=== PATIENT | female | born 1940 | race African-American/Black ===

== ENCOUNTER 2018-09-20 22:36 | Observation (INO) | payer BC, OTHER ==
--- NOTE | 2018-09-20 22:54 | PDOC ---
History of Present Illness - General Chief Complaint: Tongue Swelling Stated Complaint: COLD Time Seen by Provider: 09/20/18 22:53 - History of Present Illness Initial Comments: 09/20/18 23:26 The patient is a 77 year old female with a history of HTN, HLD, CHF, Hypothyroidism, PVD who presents for evaluation of tongue swelling. The patient noted right sided tongue swelling beginning at approximately 5pm prompting her presentation to the ED for further evaluation. The patient also notes a non-productive cough over the past 1 week as well. She denies any difficulty breathing and denies any FERMIN inhibitor use as well. She otherwise denies fevers, chills, SOB, difficulty swallowing, chest pain, nausea, vomiting , abdominal pain, or changes with urination or bowel movements. Past History - Past Medical History Allergies/Adverse Reactions: Allergies Allergy/AdvReac Type Severity Reaction Status Date / Time No Known Allergies Allergy Verified 01/01/16 00:32 Home Medications: Ambulatory Orders Levothyroxine [Synthroid -] 88 mcg PO DAILY 11/25/15 Atorvastatin Ca [Lipitor] 40 mg PO HS #30 tablet 11/26/15 Acetaminophen W/ Codeine #3 [Tylenol # 3 -] 1 tab PO Q6H PRN #60 tablet MDD 4 Albuterol 2.5/Ipratropium 0.5 [Duoneb -] 1 amp NEB Q6H PRN #60 amp 12/21/15 Bethanechol Chloride [Bethanechol Chloride -] 50 mg PO TID #90 tablet 12/21/15 Sennosides [Senna -] 2 tab PO HS #60 tablet 12/21/15 Tamsulosin HCl [Flomax -] 0.4 mg PO DAILY@0830 #30 cap.er.24h 12/21/15 Docusate Sodium [Colace -] 100 mg PO DAILY 01/01/16 Ferrous Sulfate [Feosol] 325 mg PO DAILY 01/01/16 Lactobacillus Acidophilus [Bacid -] 1 each PO DAILY 01/01/16 Collagenase Clostridium Hist. [Santyl] 1 applic TP DAILY #90 applic 02/09/16 Anemia: No Asthma: Yes Cancer: No Cardiac Disorders: No CVA: No COPD: No CHF: Yes Dementia: No Diabetes: (borderline no meds) HTN: Yes Hypercholesterolemia: Yes Seizures: No Thyroid Disease: Yes (HYPO.) - Immunization History Immunization Up to Date: No - Suicide/Smoking/Psychosocial Hx Smoking History: Never smoked Have you smoked in the past 12 months: No Hx Alcohol Use: No Drug/Substance Use Hx: No Substance Use Type: None Hx Substance Use Treatment: No Review of Systems - Review of Systems Comments:: 09/20/18 23:29 Constitutional: No fevers, chills, fatigue, malaise HEENT: Tongue swelling. No Rhinorrhea, nasal congestion, visual changes Cardiovascular: No chest pain, syncope, palpitations, lightheadedness Respiratory: Cough, No SOB, Hemoptysis, Gastrointestinal: No Abdominal pain, Nausea, Vomiting, Constipation, Diarrhea, Melena Genitourinary: No Dysuria, Frequency, Urgency, Hesitancy, Hematuria, Flank pain Musculoskeletal: No Myalgia, arthralgia Skin: No rashes, itching, bruising, pallor Neurologic: No Headache, Dizziness, Numbness, Weakness, or Tingling Psychiatric: No Hallucinations. No SI or HI *Physical Exam - Vital Signs Last Vital Signs Temp Pulse Resp BP Pulse Ox 98.2 F 74 18 142/71 100 09/20/18 22:38 09/20/18 22:38 09/20/18 22:38 09/20/18 22:38 09/20/18 22:38 - Physical Exam Comments: 09/20/18 23:30 General Appearance: Nourished. No Apparent Distress HEENT: Significant right sided laryngeal edema. Unable to visualize uvula on exam. Neck: No Cervical Lymphadenopathy Respiratory/Chest: Lungs Clear, Normal Breath Sounds. No Crackles, Rales, Rhonchi, Wheezing Cardiovascular: Regular Rhythm, Regular Rate. No Murmur, Gallops, Rubs Gastrointestinal/Abdominal: Normal Bowel Sounds, Soft. No Guarding, Rebound, Tenderness Musculoskeletal: No CVA Tenderness Extremity: Normal Capillary Refill Integumentary: Normal Color, Dry, Warm Neurologic: Fully Oriented, Alert, Normal Mood/Affect, Normal Response, ED Treatment Course - LABORATORY CBC & Chemistry Diagram: 09/20/18 23:15 09/20/18 23:15 Medical Decision Making - Medical Decision Making 09/20/18 23:33 The patient is a 77 year old female with a history of HTN, HLD, CHF, Hypothyroidism, PVD who presents for evaluation of tongue swelling. Given the patient's history and physical exam, we will obtain a cbc, cmp, chest plain film , ekg to evaluate further. The patient does not appears to be in respiratory distress currently. We will treat with iv solu-medrol and benadryl and continue to monitor and reassess while here in the ED. She will likely require admission for angioedema. 09/21/18 02:15 cbc, cmp, is unremarkable. chest plain film is unremarkable. Given the patient 's significant laryngeal edema, she will require obs admission for further monitoring. We discussed the case with the admitting team who accepted the patient for admission. *DC/Admit/Observation/Transfer Diagnosis at time of Disposition: Angio-edema Qualifiers: Encounter type: initial encounter Qualified Code(s): T78.3XXA - Angioneurotic edema, initial encounter - Discharge Dispostion Condition at time of disposition: Stable Decision to Admit order: Yes - Referrals - Patient Instructions - Post Discharge Activity
[2018-09-20] MEDS ORDERED: methylPREDNISolone NA SUCC 125 MG/2 ML VIAL IVPUSH ONE (23:05)
[2018-09-20 23:27] LABS: BASO % 0.5 % (0-2.0); EOS % 0.6 % (0-4.5); HEMATOCRIT 38.7 % (32.4-45.2); HEMOGLOBIN 12.9 GM/dL (10.7-15.3); LYMPH % 29.8 % (8-40); MCH 31.5 pg (25.7-33.7); MCHC 33.5 g/dl (32.0-36.0); MEAN CELL VOLUME 94.1 fl (80-96); MEAN PLT VOLUME 7.5 fl (7.5-11.1); MONO % 7.8 % (3.8-10.2); NEUT % 61.3 % (42.8-82.8); PLATELET COUNT 227 K/MM3 (134-434); RBC 4.11 M/mm3 (3.60-5.2); RDW 14.6 % (11.6-15.6); WHITE BLOOD COUNT 5.3 K/mm3 (4.0-10.0)
[2018-09-20 23:56] LABS: ALBUMIN 3.7 g/dl (3.4-5.0); ALK PHOS 63 U/L (45-117); ANION GAP 7 MMOL/L (8-16); BILIRUBIN,TOTAL 0.3 mg/dL (0.2-1); BLOOD UREA NITROGEN 13 mg/dL (7-18); CALCIUM 9.2 mg/dL (8.5-10.1); CHLORIDE 103 mmol/L (98-107); CO2 27 mmol/L (21-32); CREATININE 0.7 mg/dL (0.55-1.3); GLUCOSE,RANDOM 108 mg/dL (74-106); POTASSIUM 3.9 mmol/L (3.5-5.1); SGOT/AST 36 U/L (15-37); SGPT/ALT 29 U/L (13-61); SODIUM 137 mmol/L (136-145); TOT PROT 7.8 g/dl (6.4-8.2)
[2018-09-21] MEDS ORDERED: methylPREDNISolone NA SUCC 125 MG/2 ML VIAL ONE (00:32)
--- NOTE | 2018-09-21 01:05 | PN ---
Teaching Attending Note Name of Resident: Kevin Zelaya ATTENDING PHYSICIAN STATEMENT I saw and evaluated the patient. I reviewed the resident's note and discussed the case with the resident. I agree with the resident's findings and plan as documented. SUBJECTIVE: Seen and examined; please refer to resident note for further historical information. Briefly, this is a 77 y/o female presenting to the ER with tongue swelling at 5PM. Denies any respiratory distress, no issues with secretions. No new medications, no FERMIN/ARB exposure (though she is unclear about her medications off memory). No new foods, exposures, detergents, etc. She is able to swallow. Pending phone call to pharmacy to verify medications. Has not had angioedema prior. 10 sys ROS done and negative aside from HPI PMH (hypertension, HL, PAD s/p angiplasty 09/2015 and BKA 12/2015, hypothyroidism , borderline diabetes, anemia), PSH, FH, SH reviewed Medication list reviewed Home Medications Medication Instructions Recorded Levothyroxine [Synthroid -] 88 mcg PO DAILY 11/25/15 Atorvastatin Ca [Lipitor] 40 mg PO HS #30 tablet 11/26/15 Acetaminophen W/ Codeine #3 1 tab PO Q6H PRN #60 tablet MDD 4 12/21/15 [Tylenol # 3 -] Albuterol 2.5/Ipratropium 0.5 1 amp NEB Q6H PRN #60 amp 12/21/15 [Duoneb -] Bethanechol Chloride [Bethanechol 50 mg PO TID #90 tablet 12/21/15 Chloride -] Sennosides [Senna -] 2 tab PO HS #60 tablet 12/21/15 Tamsulosin HCl [Flomax -] 0.4 mg PO DAILY@0830 #30 cap.er.24h 12/21/15 Docusate Sodium [Colace -] 100 mg PO DAILY 01/01/16 Ferrous Sulfate [Feosol] 325 mg PO DAILY 01/01/16 Lactobacillus Acidophilus [Bacid -] 1 each PO DAILY 01/01/16 Collagenase Clostridium Hist. 1 applic TP DAILY #90 applic 02/09/16 [Santyl] OBJECTIVE: VS, labs, imaging reviewed NAD, AAO, resting comfortably in bed NC AT EOMI PERRLA Tongue swelling observed without lip swelling, can see uvula. NT ND +BS Lungs CTAB, w/ sym exp Normal mood, appropriate behavior EKG reviewed ECHO 2016 reviewed ASSESSMENT AND PLAN: Patient presents for suspected angioedema 1) Tongue Swelling, suspected angioedema -Placing on Prednisone 40mg PO QD and Benadryl 25mg PO BID -Monitor for airway compromise -Checking CRP, C4 -Consider OP allergy referral if needed 2) Hx Hypothyroid -Continue LT4; TSH as OP 3) CHF -Euvolemic today; verify home meds (especially presence of FERMIN) and continue appropriate tx. 4) Asthma -Documented in chart; no acute exacerbation 5) Prediabetes -Followup fsg 6) S/P BKA (below knee amputation)
--- NOTE | 2018-09-21 01:34 | HP ---
CHIEF COMPLAINT: tongue swelling PCP: HISTORY OF PRESENT ILLNESS: Patient is a 77 y/o F w/ PMHx HTN, HLD, CHF, hypothyroidism 2/2 thyroidectomy for unspecified thyroid growth, PVD c/b RLE BKA , p/w tongue swelling since 5pm. No known inciting factors, no change in diet, no FERMIN-inhibitor use, no recent medication changes, no recent travel, no changes in habit otherwise. No difficulty breathing, swallowing is "tight" but manageable, no pooling secretions. ROS otherwise negative. Labs unremarkable throughout. Received Solumedrol and Benadryl in ED. Recent Travel: None PAST MEDICAL HISTORY: As per HPI PAST SURGICAL HISTORY: As per HPI Social History: Smoking: no Alcohol: no Drugs: no Family History: Allergies No Known Allergies Allergy (Verified 01/01/16 00:32) HOME MEDICATIONS: Home Medications Medication Instructions Recorded Levothyroxine [Synthroid -] 88 mcg PO DAILY 11/25/15 Atorvastatin Ca [Lipitor] 40 mg PO HS #30 tablet 11/26/15 Acetaminophen W/ Codeine #3 1 tab PO Q6H PRN #60 tablet MDD 4 12/21/15 [Tylenol # 3 -] Albuterol 2.5/Ipratropium 0.5 1 amp NEB Q6H PRN #60 amp 12/21/15 [Duoneb -] Bethanechol Chloride [Bethanechol 50 mg PO TID #90 tablet 12/21/15 Chloride -] Sennosides [Senna -] 2 tab PO HS #60 tablet 12/21/15 Tamsulosin HCl [Flomax -] 0.4 mg PO DAILY@0830 #30 cap.er.24h 12/21/15 Docusate Sodium [Colace -] 100 mg PO DAILY 01/01/16 Ferrous Sulfate [Feosol] 325 mg PO DAILY 01/01/16 Lactobacillus Acidophilus [Bacid -] 1 each PO DAILY 01/01/16 Collagenase Clostridium Hist. 1 applic TP DAILY #90 applic 02/09/16 [Santyl] REVIEW OF SYSTEMS As per HPI PHYSICAL EXAMINATION Vital Signs - 24 hr 09/20/18 22:38 Temperature 98.2 F Pulse Rate 74 Respiratory 18 Rate Blood Pressure 142/71 O2 Sat by Pulse 100 Oximetry (%) GENERAL: A&Ox3, NAD HEAD: NC/AT EYES: PERRLA, EOMI EARS, NOSE, THROAT: +significant R-sided angioedema of the tongue, uvula cannot be visualized NECK: Normal range of motion, supple without lymphadenopathy, JVD, or masses. LUNGS: CTA b/l HEART: RRR no m/r/g ABDOMEN: +bs, soft, NT, ND EXTREMITIES: 2+ pulses, warm, well-perfused. RLE s/p BKA. NEUROLOGICAL: play writer, motor, sensory systems w/o focal deficit PSYCHIATRIC: Cooperative. Good eye contact. Appropriate mood and affect. SKIN: Warm, dry, normal turgor, no rashes or lesions noted, normal capillary refill. Laboratory Results - last 24 hr 09/20/18 09/20/18 23:15 23:15 WBC 5.3 RBC 4.11 Hgb 12.9 Hct 38.7 MCV 94.1 MCH 31.5 MCHC 33.5 RDW 14.6 D Plt Count 227 MPV 7.5 D Absolute Neuts (auto) 3.2 Neutrophils % 61.3 D Lymphocytes % 29.8 D Monocytes % 7.8 Eosinophils % 0.6 D Basophils % 0.5 Nucleated RBC % 0 Sodium 137 Potassium 3.9 Chloride 103 Carbon Dioxide 27 Anion Gap 7 L BUN 13 Creatinine 0.7 Creat Clearance w eGFR 81.14 Random Glucose 108 H Calcium 9.2 Total Bilirubin 0.3 AST 36 ALT 29 Alkaline Phosphatase 63 Total Protein 7.8 Albumin 3.7 ASSESSMENT/PLAN: #A: -77 y/o F w/ PMHx HTN, HLD, CHF, hypothyroidism 2/2 thyroidectomy for unspecified thyroid growth, PVD c/b RLE BKA, 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 - New Patient This patient is new to me today: Yes Date on this admission: 09/21/18 - Critical Care Critical Care patient: No
--- NOTE | 2018-09-21 01:58 | PDOC ---
Documentation entered by Jony Jon SCRIBE, acting as scribe for Tamiko Villalba MD. Tamiko Villalba MD: This documentation has been prepared by the Dontrell lilly Nirvannie, SCRIBE, under my direction and personally reviewed by me in its entirety. I confirm that the documentation accurately reflects all work, treatment, procedures, and medical decision making performed by me. Attending Attestation - Resident Resident Name: KatarzynaKevin - ED Attending Attestation I have performed the following: I have examined & evaluated the patient, The case was reviewed & discussed with the resident, I agree w/resident's findings & plan - HPI HPI: 09/20/18 23:12 77-year-old female has been experiencing swelling to the right side of her tongue since 5 PM this afternoon. She does not have any hives or respiratory distress at this time. She does have a "hot potato voice" - Physicial Exam PE: 09/20/18 23:29 GENERAL: Well-appearing, well-nourished. No apparent distress. HEENT: +Right sided tongue edema. Uvula is not visualized. ABDOMEN: Soft, non-distended, non-tender. EXTREMITIES: R BKA. SKIN: Warm, dry. No rash NEUROLOGICAL: No focal neurological deficits. - Medical Decision Making 09/21/18 01:57 77 yo female p/w swollen tongue,admitted for airway watch,received steroids, Benadryl
[2018-09-21 06:11] LABS: BASO % 0.3 % (0-2.0); HEMATOCRIT 38.3 % (32.4-45.2); LYMPH % 25.1 % (8-40); MCH 31.6 pg (25.7-33.7); MEAN PLT VOLUME 7.8 fl (7.5-11.1); MONO % 1.6 % (3.8-10.2); PLATELET COUNT 235 K/MM3 (134-434); RBC 4.12 M/mm3 (3.60-5.2); RDW 14.5 % (11.6-15.6); WHITE BLOOD COUNT 5.2 K/mm3 (4.0-10.0)
[2018-09-21 06:13] VITALS: BMI 28.8
[2018-09-21 06:37] LABS: ANION GAP 8 MMOL/L (8-16); BLOOD UREA NITROGEN 13 mg/dL (7-18); CALCIUM 9.4 mg/dL (8.5-10.1); CHLORIDE 104 mmol/L (98-107); CO2 28 mmol/L (21-32); CREATININE 0.8 mg/dL (0.55-1.3); GLUCOSE,RANDOM 125 mg/dL (74-106); MAGNESIUM 2.3 mg/dL (1.8-2.4); PHOSPHOROUS 3.2 mg/dL (2.5-4.9); POTASSIUM 4.2 mmol/L (3.5-5.1); SODIUM 140 mmol/L (136-145)
--- NOTE | 2018-09-21 09:49 | EKG ---
Test Reason : Blood Pressure : / mmHG Vent. Rate : 068 BPM Atrial Rate : 068 BPM P-R Int : 152 ms QRS Dur : 070 ms QT Int : 436 ms P-R-T Axes : 040 -26 011 degrees QTc Int : 463 ms POOR DATA QUALITY, INTERPRETATION MAY BE ADVERSELY AFFECTED NORMAL SINUS RHYTHM NORMAL ECG WHEN COMPARED WITH ECG OF 02-JAN-2016 01:57, PREMATURE ATRIAL COMPLEXES ARE NO LONGER PRESENT QRS AXIS SHIFTED LEFT Confirmed by ETTA FONTANEZ MD ([id number]) on 09/21/2018 9:49:23 AM Referred By: Confirmed By:ETTA FONTANEZ MD
[2018-09-21] MEDS ORDERED: ENOXAPARIN NA (PORCINE) 40 MG/0.4 ML DISP.SYRIN SQ SCH (10:00)
[2018-09-21] MEDS ORDERED: predniSONE 20 MG TABLET (UD) PO SCH (10:00)
[2018-09-21] MEDS ORDERED: diphenhydrAMINE HCL 12.5 MG/5 ML UNIT-DOSE CUPS PO SCH (10:00)
[2018-09-21] MEDS ORDERED: PT OWN MED DRAWER 7, Y5N ONE (10:14)
--- NOTE | 2018-09-21 11:55 | PN ---
Teaching Attending Note Name of Resident: Patrick Edmond ATTENDING PHYSICIAN STATEMENT I saw and evaluated the patient. I reviewed the resident's note and discussed the case with the resident. I agree with the resident's findings and plan as documented. SUBJECTIVE: Patient has no complaints. OBJECTIVE: Vital Signs Period Temp Pulse Resp BP Sys/Rahman Pulse Ox Last 24 Hr 98.0 F-98.5 F 60-79 17-18 136-166/70-84 98-100 HEENT: Pharynx clear, tongue normal HEART: S1S2, RRR LUNGS: Clear ABDOMEN: Soft, non-tender, non-distended, normal BS EXTREMITIES: No edema, s/p R BKA Laboratory Results - last 24 hr 09/20/18 09/20/18 09/21/18 23:15 23:15 01:48 WBC 5.3 RBC 4.11 Hgb 12.9 Hct 38.7 MCV 94.1 MCH 31.5 MCHC 33.5 RDW 14.6 D Plt Count 227 MPV 7.5 D Absolute Neuts (auto) 3.2 Neutrophils % 61.3 D Lymphocytes % 29.8 D Monocytes % 7.8 Eosinophils % 0.6 D Basophils % 0.5 Nucleated RBC % 0 ESR Sodium 137 Potassium 3.9 Chloride 103 Carbon Dioxide 27 Anion Gap 7 L BUN 13 Creatinine 0.7 Creat Clearance w eGFR 81.14 Random Glucose 108 H Calcium 9.2 Phosphorus Magnesium Total Bilirubin 0.3 AST 36 ALT 29 Alkaline Phosphatase 63 C-Reactive Protein 0.9 H Total Protein 7.8 Albumin 3.7 09/21/18 09/21/18 09/21/18 01:48 05:20 05:20 WBC 5.2 RBC 4.12 Hgb 13.0 Hct 38.3 MCV 93.0 MCH 31.6 MCHC 34.0 RDW 14.5 Plt Count 235 MPV 7.8 Absolute Neuts (auto) 3.8 Neutrophils % 73.0 Lymphocytes % 25.1 Monocytes % 1.6 L Eosinophils % 0.0 D Basophils % 0.3 Nucleated RBC % 0 ESR 21 Sodium 140 Potassium 4.2 Chloride 104 Carbon Dioxide 28 Anion Gap 8 BUN 13 Creatinine 0.8 Creat Clearance w eGFR 69.55 Random Glucose 125 H Calcium 9.4 Phosphorus 3.2 Magnesium 2.3 Total Bilirubin AST ALT Alkaline Phosphatase C-Reactive Protein Total Protein Albumin Current Medications Generic Name Dose Route Start Last Admin Trade Name Freq PRN Reason Stop Dose Admin Diphenhydramine HCl 25 mg 09/21/18 10:00 Benadryl Oral Solution - PO BID LUPE Enoxaparin Sodium 40 mg 09/21/18 10:00 09/21/18 10:20 Lovenox - SQ 40 mg DAILY LUPE Administration Prednisone 40 mg 09/21/18 10:00 09/21/18 10:20 Deltasone - PO 40 mg DAILY LUPE Administration ASSESSMENT AND PLAN: This is a 77 year old woman with a history of HTN, hyperlipidemia, acute systolic heart failure, hypothyroidism, PAD, right BKA who presented to the ED with swelling of her tongue. 1. Angioedema of the tongue - Resolved - Start diet - if no difficulty swallowing, would discharge with EpiPen, short course of Prednisone, Benadryl as needed 2. HTN - Continue verapamil 3. Hyperlipidemia - Continue Lipitor 4. History of acute systolic heart failure 5. Hypothyroidism secondary to thyroidectomy - Continue Synthroid 6. PAD, history of right BKA
--- NOTE | 2018-09-21 12:55 | DS ---
Physical Exam: SUBJECTIVE: Patient seen and examined. No acute events overnight. Pt. states that her tongue swelling has completely subsided. Pt. denies any changes in environment, food, or medications. Pt. denies any history of this happening before. OBJECTIVE: Vital Signs Period Temp Pulse Resp BP Sys/Rahman Pulse Ox Last 24 Hr 98.0 F-98.5 F 60-79 17-18 136-166/70-84 98-100 PHYSICAL EXAM GENERAL: The patient is awake, alert, and fully oriented, in no acute distress. HEAD: Normal with no signs of trauma. EYES: PERRL, extraocular movements intact, sclera anicteric, conjunctiva clear. ENT: Ears normal, nares patent, oropharynx clear without exudates, moist mucous membranes. LUNGS: Breath sounds equal, clear to auscultation bilaterally, no wheezes, no crackles, no accessory muscle use. HEART: Regular rate and rhythm, S1, S2 without murmur ABDOMEN: Soft, nontender, nondistended, normoactive bowel sounds, no guarding, no rebound EXTREMITIES: 2+ radial pulses, warm, well-perfused, no edema. NEUROLOGICAL: Normal speech, gait not observed. PSYCH: Normal mood, normal affect. SKIN: Warm, dry, normal turgor, no rashes or lesions noted. LABS Laboratory Results - last 24 hr 09/20/18 09/20/18 09/21/18 23:15 23:15 01:48 WBC 5.3 RBC 4.11 Hgb 12.9 Hct 38.7 MCV 94.1 MCH 31.5 MCHC 33.5 RDW 14.6 D Plt Count 227 MPV 7.5 D Absolute Neuts (auto) 3.2 Neutrophils % 61.3 D Lymphocytes % 29.8 D Monocytes % 7.8 Eosinophils % 0.6 D Basophils % 0.5 Nucleated RBC % 0 ESR Sodium 137 Potassium 3.9 Chloride 103 Carbon Dioxide 27 Anion Gap 7 L BUN 13 Creatinine 0.7 Creat Clearance w eGFR 81.14 Random Glucose 108 H Calcium 9.2 Phosphorus Magnesium Total Bilirubin 0.3 AST 36 ALT 29 Alkaline Phosphatase 63 C-Reactive Protein 0.9 H Total Protein 7.8 Albumin 3.7 09/21/18 09/21/18 09/21/18 01:48 05:20 05:20 WBC 5.2 RBC 4.12 Hgb 13.0 Hct 38.3 MCV 93.0 MCH 31.6 MCHC 34.0 RDW 14.5 Plt Count 235 MPV 7.8 Absolute Neuts (auto) 3.8 Neutrophils % 73.0 Lymphocytes % 25.1 Monocytes % 1.6 L Eosinophils % 0.0 D Basophils % 0.3 Nucleated RBC % 0 ESR 21 Sodium 140 Potassium 4.2 Chloride 104 Carbon Dioxide 28 Anion Gap 8 BUN 13 Creatinine 0.8 Creat Clearance w eGFR 69.55 Random Glucose 125 H Calcium 9.4 Phosphorus 3.2 Magnesium 2.3 Total Bilirubin AST ALT Alkaline Phosphatase C-Reactive Protein Total Protein Albumin HOSPITAL COURSE: Date of Admission:09/21/18 Date of Discharge: 09/21/18 Pt. admitted for observation for right-sided tongue swelling consistent with angioedema. Pt. given Benadryl and antihistamines with good effect. Pt. achieved full remission of the swelling. Pt. observed overnight without any acute changes or complications. Pt. discharged with steroids, benadryl and an epipen as detailed below. Hospital course discussed and agreed upon with Pt. and medical staff. Minutes to complete discharge: 35 Discharge Summary Reason For Visit: ANGIOEDEMA Current Active Problems Angio-edema (Acute) Condition: Stable - Instructions Diet, Activity, Other Instructions: You came in for tongue swelling. We treated you with steroids and benadryl and the swelling has improved Medications: Please take prednisone 40mg (2 of the 20mg tablets) once a day for 4 days starting tomorrow and then stop. Please take benadryl 25 mg twice a day only as needed for swelling or itching Please pick and shovel worker an epi-pen from the pharmacy (we prescribed it for you). Inject it into the muscle of your thigh (as described by the package instructions) if you start to experience tongue swelling or difficulty breathing and go to the emergency room immediately. Please follow up with your Primary Care Provider within 1 week Please return to the ED if you are having tongue swelling, difficulty breathing , lightheadedness, dizziness or any concerning problems. Disposition: HOME - Home Medications Comprehensive Discharge Medication List: Ambulatory Orders Levothyroxine [Synthroid -] 88 mcg PO DAILY 11/25/15 Atorvastatin Ca [Lipitor] 40 mg PO HS #30 tablet 11/26/15 Diphenhydramine HCl [Benadryl -] 25 mg PO BID #14 capsule 09/21/18 Epinephrine [Epipen 2-Eleno] 0.3 mg IJ ASDIR #1 kit 09/21/18 Verapamil HCl [Verapamil ER] 240 mg PO DAILY 09/21/18 predniSONE [Deltasone -] 40 mg PO DAILY #8 tablet 09/21/18 This patient is new to me today: Yes Date on this admission: 09/21/18 Emergency Visit: Yes ED Registration Date: 09/21/18 Care time: The patient presented to the Emergency Department on the above date and was hospitalized for further evaluation of their emergent condition. Critical Care patient: No - Discharge Referral Referred to [facility] Med P.C.: No
[2018-09-21 15:02] VITALS: BP 130/80; PULSE 78; TEMP 98.4
== END 2018-09-21 15:30 | disposition home or self-care (01) ==
LOC: SUPCPDRO 22:36 → JER 22:36 → JERBED 09-21 00:47 → J8W 09-21 06:28
PROVIDERS: ADMIT Internal Medicine; ATTEND Internal Medicine
PROC: 3E033GC Introduction of Other Therapeutic Substance into Peripheral Vein, Percutaneous Approach (ICD-10-PCS; principal; 2018-09-21)
PROC: 3E013GC Introduction of Other Therapeutic Substance into Subcutaneous Tissue, Percutaneous Approach (ICD-10-PCS; 2018-09-21)
DX: T78.3XXA Angioneurotic edema, initial encounter (principal); I11.0 Hypertensive heart disease with heart failure; E78.5 Hyperlipidemia, unspecified; I50.20 Unspecified systolic (congestive) heart failure; E03.9 Hypothyroidism, unspecified; I73.9 Peripheral vascular disease, unspecified; J45.909 Unspecified asthma, uncomplicated; R73.03 Prediabetes
CPT/HCPCS: 36415; 71045-TC-FY; 80048; 80053; 83735; 84100; 85025; 85651; 86140; 86160; 93005; 93010; 96372; 96374; 96375; 99285-25; G0378

== ENCOUNTER 2018-12-22 17:09 | Emergency (ER) | payer BC ==
[2018-12-22] MEDS ORDERED: ASPIRIN 81 MG CHEWABLE TABLETS PO ONE (17:22)
--- NOTE | 2018-12-22 17:22 | PDOC ---
Rapid Medical Evaluation Chief Complaint: Chest Pain Time Seen by Provider: 12/22/18 17:21 Medical Evaluation: Allergies Allergy/AdvReac Type Severity Reaction Status Date / Time No Known Allergies Allergy Verified 12/22/18 17:19 12/22/18 17:21 HPI: R shoulder pain x2 days getting worse PE: No gross deficits ORDERS: cardiac work up Discharge Disposition - Diagnosis Acute pain of right shoulder - Referrals - Patient Instructions - Post Discharge Activity
[2018-12-22 17:24] VITALS: BMI 25.8
[2018-12-22] MEDS ORDERED: ASPIRIN 81 MG CHEWABLE TABLETS ONE (18:56)
[2018-12-22 19:26] LABS: BASO % 0.3 % (0-2.0); EOS % 0.5 % (0-4.5); HEMATOCRIT 37.3 % (32.4-45.2); HEMOGLOBIN 12.6 GM/dL (10.7-15.3); LYMPH % 26.7 % (8-40); MCHC 33.7 g/dl (32.0-36.0); MEAN CELL VOLUME 92.1 fl (80-96); MEAN PLT VOLUME 8.2 fl (7.5-11.1); MONO % 8.5 % (3.8-10.2); PLATELET COUNT 232 K/MM3 (134-434); RBC 4.05 M/mm3 (3.60-5.2); RDW 13.7 % (11.6-15.6); WHITE BLOOD COUNT 7.4 K/mm3 (4.0-10.0)
[2018-12-22 19:33] LABS: INR 1.11 (0.83-1.09); PROTHROMBIN TIME (PATIENT) 13.1 SEC (9.7-13.0)
[2018-12-22 19:49] LABS: ALK PHOS 66 U/L (45-117); ANION GAP 7 MMOL/L (8-16); BILIRUBIN,TOTAL 0.4 mg/dL (0.2-1); BLOOD UREA NITROGEN 10.2 mg/dL (7-18); CALCIUM 9.6 mg/dL (8.5-10.1); CHLORIDE 97 mmol/L (98-107); CO2 30 mmol/L (21-32); CREATININE 0.9 mg/dL (0.55-1.3); GLUCOSE,RANDOM 97 mg/dL (74-106); POTASSIUM 3.7 mmol/L (3.5-5.1); SGOT/AST 12 U/L (15-37); SGPT/ALT 16 U/L (13-61); SODIUM 134 mmol/L (136-145); TOT PROT 8.1 g/dl (6.4-8.2)
[2018-12-22] MEDS ORDERED: ACETAMINOPHEN 650 MG/20.3 ML ORAL SOLUTION (CUPS) PO ONE (20:51)
[2018-12-22] MEDS ORDERED: ACETAMINOPHEN 325 MG TABLET (FP) ONE (22:54)
[2018-12-22 23:33] VITALS: TEMP 98.6
--- NOTE | 2018-12-22 23:38 | PDOC ---
Documentation entered by Collin Martinez SCRIBE, acting as scribe for Tamiko Villalba MD. Tamiko Villalba MD: This documentation has been prepared by the Juan lilly Joel, SCRIBE, under my direction and personally reviewed by me in its entirety. I confirm that the documentation accurately reflects all work, treatment, procedures, and medical decision making performed by me. 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 The patient states her right shoulder pain is an intermittent sensation that radiates into her right scapula, which started 2 days ago before resolving yesterday and reappearing today. She reports taking Tylenol to minimal relief. She denies history of trauma. The patient denies chest pain, shortness of breath, headache and dizziness. Denies fever, chills, nausea, vomit, diarrhea and constipation. Denies dysuria, frequency, urgency and hematuria. Allergies: NKA Past surgical history: Thyroidectomy. Right BKA. Tubal ligation. Social history: No reported cigarette, alcohol, or drug use. PCP: Dr. Marcial Ayala Vascular: Dr. Roger Tran Past History - Past Medical History Allergies/Adverse Reactions: Allergies Allergy/AdvReac Type Severity Reaction Status Date / Time No Known Allergies Allergy Verified 12/22/18 17:19 Home Medications: Ambulatory Orders Levothyroxine [Synthroid -] 88 mcg PO DAILY 11/25/15 Amlodipine Besylate 5 mg PO HS 12/22/18 Aspirin [Aspirin EC] 81 mg PO HS 12/22/18 Atorvastatin Ca [Lipitor] 10 mg PO HS 12/22/18 Cholecalciferol (Vitamin D3) [Vitamin D] 2,000 unit PO HS 12/22/18 Hydrochlorothiazide [Hctz -] 12.5 mg PO TUFR 12/22/18 Anemia: No Asthma: Yes Cancer: No Cardiac Disorders: No CVA: No COPD: No CHF: Yes Dementia: No Diabetes: (borderline no meds) GI Disorders: No HTN: Yes Hypercholesterolemia: Yes Liver Disease: No Seizures: No Thyroid Disease: Yes (HYPO.) - Immunization History Immunization Up to Date: No - Suicide/Smoking/Psychosocial Hx Smoking History: Never smoked Have you smoked in the past 12 months: No Hx Alcohol Use: No Drug/Substance Use Hx: No Substance Use Type: None Hx Substance Use Treatment: No Review of Systems - Review of Systems Able to Perform ROS?: Yes Comments:: 12/22/18 19:01 GENERAL/CONSTITUTIONAL: No fever or chills. No weakness. HEAD, EYES, EARS, NOSE AND THROAT: No change in vision. No ear pain or discharge. No sore throat. CARDIOVASCULAR: No chest pain or shortness of breath. RESPIRATORY: No cough, wheezing, or hemoptysis. GASTROINTESTINAL: No nausea, vomiting, diarrhea or constipation. GENITOURINARY: No dysuria, frequency, or change in urination. MUSCULOSKELETAL: (+) Right shoulder pain. No joint or muscle swelling. No neck or back pain. SKIN: No rash NEUROLOGIC: No headache, vertigo, loss of consciousness, or change in strength/ sensation. ENDOCRINE: No increased thirst. No abnormal weight change. HEMATOLOGIC/LYMPHATIC: No anemia, easy bleeding, or history of blood clots. ALLERGIC/IMMUNOLOGIC: No hives or skin allergy. *Physical Exam - Vital Signs Last Vital Signs Temp Pulse Resp BP Pulse Ox 98.8 F 100 H 20 130/79 99 12/22/18 17:10 12/22/18 17:10 12/22/18 17:10 12/22/18 17:10 12/22/18 17:10 - Physical Exam Comments: 12/22/18 19:02 GENERAL: Awake, alert, and fully oriented, in no acute distress HEAD: No signs of trauma EYES: PERRLA, EOMI, sclera anicteric, conjunctiva clear ENT: Auricles normal inspection, hearing grossly normal, nares patent, oropharynx clear without exudates. Moist mucosa NECK: Normal ROM, supple, no lymphadenopathy, JVD, or masses LUNGS: Breath sounds equal, clear to auscultation bilaterally. No wheezes, and no crackles HEART: Regular rate and rhythm, normal S1 and S2, no murmurs, rubs or gallops ABDOMEN: Soft, nontender, normoactive bowel sounds. No guarding, no rebound. No masses EXTREMITIES: Normal range of motion, no edema. No clubbing or cyanosis. No cords, erythema, or tenderness NEUROLOGICAL: Cranial nerves II through XII grossly intact. Normal speech. SKIN: Warm, Dry, normal turgor, no rashes or lesions noted. ED Treatment Course - LABORATORY CBC & Chemistry Diagram: 12/22/18 19:05 12/22/18 19:05 - ADDITIONAL ORDERS Additional order review: Laboratory Results 12/22/18 12/22/18 12/22/18 19:05 19:05 19:05 PT with INR 13.10 H INR 1.11 H Sodium 134 L Potassium 3.7 Chloride 97 L Carbon Dioxide 30 Anion Gap 7 L BUN 10.2 Creatinine 0.9 Est GFR (CKD-EPI)AfAm 71.48 Est GFR (CKD-EPI)NonAf 61.67 Random Glucose 97 Calcium 9.6 Magnesium 2.3 Total Bilirubin 0.4 AST 12 L ALT 16 Alkaline Phosphatase 66 Creatine Kinase 181 Creatine Kinase Index 0.9 CK-MB (CK-2) 1.7 Troponin I < 0.02 Total Protein 8.1 Albumin 4.0 12/22/18 19:05 RBC 4.05 MCV 92.1 MCHC 33.7 RDW 13.7 MPV 8.2 Neutrophils % 64.0 Lymphocytes % 26.7 Monocytes % 8.5 D Eosinophils % 0.5 D Basophils % 0.3 - Medications Given in the ED: ED Medications Discontinued Medications Generic Name Dose Route Start Last Admin Trade Name Freq PRN Reason Stop Dose Admin Aspirin 162 mg 12/22/18 17:22 12/22/18 19:00 Asa - PO 12/22/18 17:23 162 mg ONCE ONE Administration Medical Decision Making - Medical Decision Making 12/22/18 23:35 Diff diag includes ACS, arthritis rt shoulder pt 's labs reviewed and they are unremarkable ,first troponin negative ekg no change from previous cxr napd plan if second troponin is negative ,will d/c home 12/23/18 01:37 second trop negative *DC/Admit/Observation/Transfer Diagnosis at time of Disposition: Acute pain of right shoulder, Atypical chest pain - Discharge Dispostion Disposition: HOME Condition at time of disposition: Improved - Referrals Referrals: Marcial Ayala MD [Primary Care Provider] - - Patient Instructions Printed Discharge Instructions: DI for Atypical Chest Pain, DI for Shoulder Pain Additional Instructions: please take aleve or tylenol or motrin for your pain please follow up with your regular physician - Post Discharge Activity
[2018-12-23 02:13] VITALS: BP 123/72; PULSE 89
--- NOTE | 2018-12-23 08:17 | EKG ---
Test Reason : Blood Pressure : / mmHG Vent. Rate : 091 BPM Atrial Rate : 091 BPM P-R Int : 134 ms QRS Dur : 074 ms QT Int : 362 ms P-R-T Axes : 020 -23 026 degrees QTc Int : 445 ms POOR DATA QUALITY, INTERPRETATION MAY BE ADVERSELY AFFECTED NORMAL SINUS RHYTHM POSSIBLE ANTERIOR INFARCT , AGE UNDETERMINED ABNORMAL ECG WHEN COMPARED WITH ECG OF 21-SEP-2018 00:18, NO SIGNIFICANT CHANGE WAS FOUND Confirmed by PADMINI PICKENS, KHANH ([id number]) on 12/23/2018 8:17:22 AM Referred By: Confirmed By:KHANH WASHINGTON MD
== END 2018-12-23 02:14 | disposition home or self-care (01) ==
LOC: JER 17:09
DX: M25.511 Pain in right shoulder (principal); R07.89 Other chest pain; I11.0 Hypertensive heart disease with heart failure; I50.9 Heart failure, unspecified; E78.5 Hyperlipidemia, unspecified; E03.9 Hypothyroidism, unspecified; I73.9 Peripheral vascular disease, unspecified; J45.909 Unspecified asthma, uncomplicated; Z89.511 Acquired absence of right leg below knee; Z79.82 Long term (current) use of aspirin; R73.03 Prediabetes
CPT/HCPCS: 36415; 71046-TC-FY; 80053; 82550; 82553; 83735; 84484; 85025; 85610; 93005; 93010; 99285-25